=== PATIENT | male | born 1995 | race Caucasian/White ===

== ENCOUNTER 2024-12-21 09:53 | Emergency (ER) | payer SELFPAY ==
[~2024-12-21 09:53] MED LIST: Iopamidol 370 76% 100 ML VIAL ONE
[2024-12-21 11:47] LABS: #Basophils 0.1 thou/uL (0.0-0.2); #Eosinophils 0.2 thou/uL (0.0-0.7); #Lymphocytes 1.7 thou/uL (1.20-3.40); #Monocytes 0.4 thou/uL (0.11-0.59); %Basophils 1.1 % (0.0-1.0); %Eosinophils 2.6 % (0.0-10.0); %Lymphocytes 26.5 % (21.0-51.0); %Monocytes 6.2 % (0.0-10.0); %Neutrophils 63.5 % (42.0-75.0); Hematocrit 40.3 % (42.0-52.0); Hemoglobin 13.3 g/dL (14.0-18.0); Mean Corpuscular Hemoglobin 29.5 pg (27.0-31.0); Mean Corpuscular Volume 89.4 fl (78.0-98.0); Mean Platelet Volume 11.1 fL (7.4-10.4); Platelet Count 171 10x3/uL (130-400); RBC Distribution Width 11.7 % (11.5-14.5); Red Blood Cell (RBC) Count 4.51 mill/uL (4.70-6.10); White Blood Cell (WBC) Count 6.3 10x3/uL (4.8-10.8)
[2024-12-21 11:52] LABS: INR-International Normal Ratio 1.1; PTT 29.5 sec (22.9-36.1); Prothrombin Time 13.7 sec (12.0-14.7)
[2024-12-21 12:00] LABS: ALT (SGPT) 14 U/L (Less than 45); AST (SGOT) 19 U/L (11-34); Alkaline Phosphatase 63 U/L (40-110); Anion Gap 15 mmol/L (10-20); BUN (Urea Nitrogen) 11 mg/dL (8.9-20.6); Bilirubin, Total 0.6 mg/dL (0.3-1.2); Calc. Creatinine Clearance 0 mL/min (70-130); Carbon Dioxide 23 mmol/L (22-29); Chloride 102 mmol/L (98-107); Estimated GFR 122; Globulin 2.9 g/dL (2.4-3.5); Glucose 88 mg/dL (70-105); Potassium 3.7 mmol/L (3.5-5.1); Protein, Total 6.9 g/dL (6.0-8.3); Sodium 136 mmol/L (136-145)
[2024-12-21 12:01] LABS: Troponin I Less than 0.010 ng/mL (< 0.028)
== END 2024-12-21 12:15 | disposition home or self-care (01) ==
LOC: MADERS 09:53
DX: I26.99 Other pulmonary embolism without acute cor pulmonale (principal)
CPT/HCPCS: 36415; 71275; 80053; 83880; 84484; 85025; 85610; 85730; 93005; 94760; Q9967